=== PATIENT | female | born 1985 | race Caucasian/White ===

== ENCOUNTER 2017-08-31 10:04 | Emergency (ER) | payer SELFPAY ==
[2017-08-31 10:09] VITALS: BP 118/64; PULSE 66; TEMP 98.1; BMI 28.8
--- NOTE | 2017-08-31 10:22 | PDOC ---
History of Present Illness - General Chief Complaint: Pain, Acute Stated Complaint: ABD PAIN Time Seen by Provider: 08/31/17 10:22 - History of Present Illness Initial Comments: 08/31/17 10:40 Ms. Mckay is a 32 yo female w/ pmh of anemia, cholecystecomy, and 10 years ago who presents w/ a one week history of left sided abdominal pain with diarrhea as well as pain with urination. The patient denies chest pain, shortness of breath, headache and dizziness. Denies fever, chills, nausea, vomit, and constipation. Allergies: NKDA Past History - Past Medical History Allergies/Adverse Reactions: Allergies Allergy/AdvReac Type Severity Reaction Status Date / Time No Known Allergies Allergy Verified 08/31/17 10:09 Home Medications: Ambulatory Orders NK [No Known Home Medication] 08/31/17 Anemia: Yes COPD: No Liver Disease: (FATTY LIVER) - Surgical History Cholecystectomy: Yes - Suicide/Smoking/Psychosocial Hx Smoking History: Never smoked Hx Alcohol Use: No Drug/Substance Use Hx: Yes (OCCASIONALLY) Review of Systems - Review of Systems Comments:: 08/31/17 10:44 GENERAL/CONSTITUTIONAL: No fever or chills. No weakness. HEAD, EYES, EARS, NOSE AND THROAT: No change in vision. No ear pain or discharge. No sore throat. CARDIOVASCULAR: No chest pain or shortness of breath RESPIRATORY: No cough, wheezing, or hemoptysis. GASTROINTESTINAL: +Diarrhea with left sided abdominal pain. No nausea, vomiting , or constipation. GENITOURINARY: +Dysuria as described MUSCULOSKELETAL: No joint or muscle swelling or pain. No neck or back pain. SKIN: No rash NEUROLOGIC: No headache, vertigo, loss of consciousness, or change in strength/ sensation. ENDOCRINE: No increased thirst. No abnormal weight change HEMATOLOGIC/LYMPHATIC: No anemia, easy bleeding, or history of blood clots. ALLERGIC/IMMUNOLOGIC: No hives or skin allergy. *Physical Exam - Vital Signs Last Vital Signs Temp Pulse Resp BP Pulse Ox 98.1 F 66 16 118/64 100 08/31/17 10:06 08/31/17 10:06 08/31/17 10:06 08/31/17 10:06 08/31/17 10:06 - Physical Exam Comments: 08/31/17 10:45 GENERAL: Awake, alert, and fully oriented, in no acute distress HEAD: No signs of trauma, normocephalic, atraumatic EYES: PERRLA, EOMI, sclera anicteric, conjunctiva clear ENT: Auricles normal inspection, hearing grossly normal, nares patent, oropharynx clear without exudates. Moist mucosa NECK: Normal ROM, supple, no lymphadenopathy, JVD, or masses LUNGS: No distress, speaks full sentences, clear to auscultation bilaterally HEART: Regular rate and rhythm, normal S1 and S2, no murmurs, rubs or gallops, peripheral pulses normal and equal bilaterally. ABDOMEN: +Diffusely tender with emphasis to left upper and lower abdomen. Soft, normoactive bowel sounds. No guarding, no rebound. No masses EXTREMITIES: Normal inspection, Normal range of motion, no edema. No clubbing or cyanosis. NEUROLOGICAL: Cranial nerves II through XII grossly intact. Normal speech, normal gait, no focal sensorimotor deficits SKIN: Warm, Dry, normal turgor, no rashes or lesions noted. ED Treatment Course - LABORATORY CBC & Chemistry Diagram: 08/31/17 10:55 08/31/17 10:55 Medical Decision Making - Medical Decision Making 08/31/17 12:06 Ms. Mckay is a 32 yo female w/ pmh as described presenting for abdominal pain evaluation. Labs and UA grossly wnl, will evaluate with abdominal/pelvic CT for further evaluation. 08/31/17 13:40 Patient noted to have 4.4x3.4x3.[address] Pain control given and will d/ c with follow-up to [facility] for further evaluation. 08/31/17 13:47 Discussed with patient who verbalized agreement and understanding of need for outpatient f/u. Will provide info for Dr. Rey ([facility]). *DC/Admit/Observation/Transfer Diagnosis at time of Disposition: Abdominal pain Qualifiers: Abdominal location: unspecified location Qualified Code(s): R10.9 - Unspecified abdominal pain - Discharge Dispostion Disposition: HOME - Referrals Referrals: William Barajas MD [Staff Physician] - - Patient Instructions Printed Discharge Instructions: DI for Ovarian Cyst Additional Instructions: Please return if any severe increase in pain, fever, chills, or any other concerning symptoms. Follow-up with [facility] as discussed. Print Language: COMORAN - Post Discharge Activity
[2017-08-31 11:10] LABS: BASO % 0.9 % (0-2.0); HEMATOCRIT 38.5 % (32.4-45.2); HEMOGLOBIN 12.7 GM/dL (10.7-15.3); MCH 27.6 pg (25.7-33.7); MEAN CELL VOLUME 83.7 fl (80-96); MEAN PLT VOLUME 9.2 fl (7.5-11.1); MONO % 12.3 % (3.8-10.2); NEUT % 53.8 % (42.8-82.8); PLATELET COUNT 187 K/MM3 (134-434); RDW 13.3 % (11.6-15.6); WHITE BLOOD COUNT 5.4 K/mm3 (4.0-10.0)
[2017-08-31] MEDS ORDERED: SODIUM CHLORIDE 1,000 ML IV STA (11:11)
--- NOTE | 2017-08-31 11:14 | PDOC ---
Attending Attestation - Resident Resident Name: Mikahil Velazquez - ED Attending Attestation I have performed the following: I have examined & evaluated the patient, The case was reviewed & discussed with the resident, I agree w/resident's findings & plan, Exceptions are as noted - Physicial Exam PE: GENERAL: Awake, alert, and fully oriented, in no acute distress HEAD: No signs of trauma EYES: PERRLA, EOMI, sclera anicteric, conjunctiva clear ENT: Auricles normal inspection, hearing grossly normal, nares patent, oropharynx clear without exudates. Dry mucosa NECK: Normal ROM, supple, no lymphadenopathy, JVD, or masses LUNGS: Breath sounds equal, clear to auscultation bilaterally. No wheezes, and no crackles HEART: Regular rate and rhythm, normal S1 and S2, no murmurs, rubs or gallops ABDOMEN: Soft, +BUQ tenderness and epigastric tenderness, normoactive bowel sounds. No guarding, no rebound. No masses EXTREMITIES: Normal range of motion, no edema. No clubbing or cyanosis. No cords, erythema, or tenderness NEUROLOGICAL: Cranial nerves II through XII grossly intact. Normal speech, normal gait SKIN: Warm, Dry, normal turgor, no rashes or lesions noted. - Medical Decision Making 08/31/17 11:13 Pt with history of cholecystectomy in past. Will plan for CT a/p to further evaluate for abd tenderness. Will give IV fluids for mild dehydration. <Autumn Alvarez - Last Filed: 08/31/17 11:11> - HPI HPI: 08/31/17 11:17 Pt is a 32 yo F with a PMHx of Anemia, Fatty liver, S/p cholecystectomy who presents to the ED with upper abdominal pain for the past 2 weeks. Patient reports epigastric pain, 9/10 in severity associated with nausea and diarrhea ( nonbilious, nonbloody). Patient complains of dysuria. Patient denied taking any medications for relief and presents to the ED for further evaluation. Patient denies any recent travel or sick contacts. PCP: None - Medical Decision Making 08/31/17 11:17 Documentation prepared by Kimberly Donnelly, acting as electromedical equipment technician for Autumn Alvarez MD <Kimberly Donnelly - Last Filed: 08/31/17 13:39>
[2017-08-31 11:38] LABS: ALBUMIN 3.5 g/dl (3.4-5.0); ALK PHOS 87 U/L (45-117); ANION GAP 2 (8-16); BILIRUBIN,TOTAL 0.3 mg/dL (0.2-1.0); BLOOD UREA NITROGEN 8 mg/dL (7-18); CALCIUM 8.4 mg/dL (8.5-10.1); CHLORIDE 107 mmol/L (98-107); CO2 30 mmol/L (21-32); CREATININE 0.6 mg/dL (0.55-1.02); GLUCOSE,RANDOM 67 mg/dL (74-106); LIPASE 99 U/L (73-393); POTASSIUM 4.2 mmol/L (3.5-5.1); SGOT/AST 13 U/L (15-37); SGPT/ALT 21 U/L (12-78); SODIUM 139 mmol/L (136-145)
[2017-08-31 11:54] LABS: URINE APPEARANCE CLEAR; URINE BILIRUBIN NEGATIVE (NEGATIVE); URINE BLOOD NEGATIVE (NEGATIVE); URINE COLOR STRAW; URINE GLUCOSE (UA) NEGATIVE (NEGATIVE); URINE KETONE NEGATIVE (NEGATIVE); URINE LEUK ESTERASE NEGATIVE (NEGATIVE); URINE NITRITE NEGATIVE (NEGATIVE); URINE PROTEIN NEGATIVE (NEGATIVE); URINE UROBILINOGEN NEGATIVE mg/dL (0.2-1.0)
[2017-08-31 11:55] LABS: HCG,QUALITATIVE URINE NEGATIVE
[2017-08-31] MEDS ORDERED: KETOROLAC TROMETHAMINE 30 MG/1 ML VIAL IVPUSH ONE (13:40)
[2017-08-31] MEDS ORDERED: KETOROLAC TROMETHAMINE 30 MG/1 ML VIAL ONE (13:43)
== END 2017-08-31 13:54 | disposition home or self-care (01) ==
LOC: JER 10:04
PROC: 3E0337Z Introduction of Electrolytic and Water Balance Substance into Peripheral Vein, Percutaneous Approach (ICD-10-PCS; principal; 2017-08-31)
PROC: 3E0333Z Introduction of Anti-inflammatory into Peripheral Vein, Percutaneous Approach (ICD-10-PCS; 2017-08-31)
DX: R10.30 Lower abdominal pain, unspecified (principal); N83.202 Unspecified ovarian cyst, left side
CPT/HCPCS: 36415; 74176-TC; 80053; 81003; 83690; 84703; 85025; 87086; 99283-25